=== PATIENT | female | born 1990 | race Caucasian/White ===

== ENCOUNTER 2017-02-28 02:21 | Emergency (ER) | payer OTHER ==
--- NOTE | 2017-02-28 03:25 | PD ---
HPI Chief Complaint contractions Date Seen: Feb 28, 2017 Time Seen: 03:15 Travel History International Travel<30 Days: No Contact w/Intl Traveler<30Days: No Known Affected Area: No History of Present Illness HPI Pt is a 26 y/o G1 with IUP at 40.1 wks who presents for labor check. pt reports feeling contractions since midnight, irregular pattern, 3-15 minutes apart. denies vb, lof. +FM Para: 0 : 1 History Past Medical History Medical History: Denies Significant Hx Past Surgical History Narrative Surgical adenoidectomy disc surgery lower back LEEP Family History Family History: Negative Social History Alcohol Use: No Tobacco Use: No Substance Abuse: No Allergies-Medications (Allergen,Severity, Reaction): Coded Allergies: No Known Allergies (Unverified , 02/28/17) Narrative Medication PNV Review of Systems General / Constitutional: Weight Gain Eyes: No: Diploplia, Blurred Vision, Visual changes, Pain, Photophobia, Other HENT: No: Headaches, Vertigo, Dental Difficulties, Lightheadedness, Other Respiratory: No: Cough, Short of Breath, Wheezing, Other Gastrointestinal: No: Nausea, Vomiting, Diarrhea, Abdominal Pain, Hematemesis, Hematochezia, Constipation, Changes in Bowel Habits, Indigestion, Loss of Appetite, Other Genitourinary: No: Urgency, Frequency, Dysuria, Nocturia, Hematuria, Decreased Urinary Output, Oliguria, Hesitancy, Dribbling, Incontinence, Pelvic Pain, Dyspareunia, Discharge, Menorrhagia, Vaginal Bleeding, Other Musculoskeletal: No: Limited ROM, Weakness, Cramping, Edema, Pain, Other Skin: No Rash, No Itching, No Dryness, No Lumps, No Change in Pigmentation, No Change in Nails, No Alopecia, No Lesions, No Breast Lumps, No Breast Tenderness , No Breast Swelling, No Other Neurologic: No: Weakness, Dizziness, Syncope, Focal Abnormalities, Coordination Problem, Headache, Slurred Speech, Seizures, Other Psychiatric: No: Anxiety, Depression, Suicidal Ideations, Disorder of Thought, Mood Disorder, Substance Abuse, Homicidal Ideation, Other Endocrine: No: Heat Intolerance, Cold Intolerance, Polydipsia, Polyuria, Other Hematologic/Lymphatic: No Easy Bruising, No Lymph Node Enlargement, No Other Physical Exam 118/73, 93, 18, 98.2 Narrative GENERAL: Well-nourished, well-developed patient. SKIN: Warm and dry. HEAD: Normocephalic and atraumatic. EYES: No scleral icterus. No injection or drainage. ENT: No nasal drainage noted. Mucous membranes pink. Airway patent. NECK: Supple, trachea midline. No JVD. CARDIOVASCULAR: Regular rate and rhythm without murmurs, gallops, or rubs. RESPIRATORY: Breath sounds equal bilaterally. No accessory muscle use. . ABDOMEN/GI: Abdomen soft, non-tender, bowel sounds present, no rebound, no guarding Gravid GENITOURINARY: External Genitalia: intact and normal in appearance BUS glands: [wnl] Cervix: - Dilatation: 1 Effacement: thick Station: -3 Presentation: cep Membranes: intact Uterine Contractions: irregular FHT's: Category: 1 Baseline: [130] Reactive: yes Variability: mod Decels: no EXTREMITIES: No cyanosis or edema. BACK: Nontender without obvious deformity. No CVA tenderness. NEUROLOGICAL: Awake and alert. Motor and sensory grossly within normal limits. Five out of 5 muscle strength in all muscle groups. Normal speech. Data Data Vital Signs Reviewed: Yes MDM Medical Record Reviewed: Yes Narrative Course / MDM 26 y/o G1 with IUP at 40.1 wks false labor labor precautions/FKC Diagnosis Diagnosis: Primary Impression: False labor after 37 completed weeks of gestation Additional Impression: 40 weeks gestation of Disposition: 01 DISCHARGE HOME Patient Instructions: Movement (ED), General Instructions, Early Labor Signs (ED) Meli France MD Feb 28, 2017 03:25
[2017-03-01] MEDS ORDERED: PRENTAB85 PO (23:36)
== END 2017-02-28 04:09 | disposition home or self-care (01) ==
LOC: HOBED 02:21
DX: O47.1 False labor at or after 37 completed weeks of gestation (principal); Z3A.40 40 weeks gestation of pregnancy
CPT/HCPCS: 59025

== ENCOUNTER 2017-03-01 22:09 | Inpatient (IN) | payer OTHER ==
[~2017-03-01] VITALS: Ht 160 cm; Wt 84.4 kg
[2017-03-01] MEDS ORDERED: PRENTAB85 PO (23:36)
--- NOTE | 2017-03-01 23:53 | PD ---
HPI Chief Complaint ctx Date Seen: Mar 01, 2017 Time Seen: 23:30 Travel History International Travel<30 Days: No Contact w/Intl Traveler<30Days: No Known Affected Area: No History of Present Illness HPI 26 y/o , IUP at 40.2 records reviewed and PNC complicated by: 1. h/o abnl PAP (ASCUS) with prior h/o abnl PAP treated with LEEP in 2015 2. h/o chlamydia 2010 3. migraine CONRAD 4. Back surgery 2014 The patient presents c/o onset of painful ctx at 4pm. She reports they have increased in intensity and frequency to now under every 5 minutes. There are no aggravating or alleviating factors. There are no attempted treatments. She was seen in the office earlier today and was 1cm dilated. She reports normal and good FM, denies any LOF at this time, denies any VB. She is scheduled for IOL in 2d. Para: 0 : 1 Miscarriage: 0 : 0 History Past Medical History Narrative Medical Migraine CONRAD Obstetric History Obstetric History H/o abnl PAPs with LEEP h/o chlamydia 2010 Past Surgical History Narrative Surgical Back surgery 2014 LEEP Adenoidectomy Family History Narrative Family History HTN Breast CA Social History Alcohol Use: No Tobacco Use: No Substance Abuse: No Allergies-Medications (Allergen,Severity, Reaction): Coded Allergies: No Known Allergies (Unverified , 03/01/17) Home Meds Reported Medications Vit W/ Ferrous Fumara (Pnv Plus Multivi 27-1 mg)1 Tab Tab1 Tab PO DAILY 03/01/17 Review of Systems Gastrointestinal: Abdominal Pain Physical Exam VSS AF, reviewed in EMR Narrative GENERAL: Well-nourished, well-developed patient. SKIN: Warm and dry. HEAD: Normocephalic and atraumatic. EYES: No scleral icterus. No injection or drainage. ENT: No nasal drainage noted. Mucous membranes pink. Airway patent. NECK: Supple, trachea midline. No JVD. CARDIOVASCULAR: Regular rate and rhythm without murmurs, gallops, or rubs. RESPIRATORY: Breath sounds equal bilaterally. No accessory muscle use. BREASTS: Bilateral exam showed no masses , no retractions, no nipple discharge. ABDOMEN/GI: Abdomen soft, non-tender, bowel sounds present, no rebound, no guarding Gravid External Genitalia: intact and normal in appearance BUS glands:nl Cervix: [nl] Dilatation: 1 Effacement:50 Station: -2 Repeat exam in 1h with change to 3cm dilation Presentation: cephalic Membranes: intact, amnisure neg Uterine Contractions: [noted] FHT's: Category: [1] Baseline: [130s] Reactive: [yes] Variability: [moderate with good accels] Decels: [n] EXTREMITIES: No cyanosis or edema. BACK: Nontender without obvious deformity. No CVA tenderness. NEUROLOGICAL: Awake and alert. Motor and sensory grossly within normal limits. Five out of 5 muscle strength in all muscle groups. Normal speech. Skin warm/dry, no rashes noted Data Data Vital Signs Reviewed: Yes [facility] Medical Record Reviewed: Yes Plan A/P: 26y/o 1. IUP at 40.2 2. Early labor at term: cervical change noted over observation period. Discussed labor with patient, will admit to primary Ob. 3. wellbeing: reassuring testing with reactive NST, FHR reassuring and appropriate for gestational henrik. Continue EFM. 4. h/o back surgery 5. h/o abnl PAPs and LEEP: f/u 6. h/o migraine CONRAD Diagnosis Diagnosis: Ruled Out: False labor after 37 completed weeks of gestation Condition: Makayla Cheema MD Mar 01, 2017 23:53 Makayla Willett MD Mar 01, 2017 23:53
--- NOTE | 2017-03-01 23:56 | HHI.PR ---
[facility] [employer] Note Note NST note Indications: IUP at 40.2, abdominal pain, h/o anl PAP, h/o back surgery Baseline 130s GOod accels noted, no decels noted, Reactive Final dx: IUP at 40w, posterm , reassuring testing, false labor F/U as clinically indicated Makayla Willett MD Mar 01, 2017 23:56
[2017-03-02] VITALS (154 sets, daily range): BP systolic 90–146; BP diastolic 40–105; PULSE 47–125; RESP 17–20; TEMP 98.1–98.9; O2SAT 95–100
[2017-03-02] MEDS ORDERED: LACTATED RINGER'S 1000 ML INJ 1,000 ML IV PRN (01:11)
[2017-03-02] MEDS ORDERED: OXYTOCIN 30 UNITS-500ML PREMIX 500 ML IV ONE (01:15)
[2017-03-02] MEDS ORDERED: CITRIC ACID-SODIUM CITRATE LIQ 30 ML UDC PO SCH (01:15)
[2017-03-02] MEDS ORDERED: LIDOCAINE HCL 1% 50 ML VIAL I-DERMAL PRN (01:15)
[2017-03-02] MEDS ORDERED: LIDOCAINE HCL 1% 50 ML VIAL INFIL PRN (01:15)
[2017-03-02] MEDS ORDERED: MINERAL OIL 10 ML VIAL TOPICAL PRN (01:15)
[2017-03-02] MEDS ORDERED: SODIUM CHLORID 0.9% 500 ML INJ 500 ML IV PRN (01:15)
[2017-03-02] MEDS ORDERED: SODIUM CHLOR 0.9% 1000 ML INJ 1,000 ML IV PRN (01:31)
[2017-03-02] MEDS ORDERED: ONDANSETRON HCL 4 MG/2 ML VIAL ONE (01:37)
[2017-03-02] MEDS: LACTATED RINGER'S 1000 ML INJ 1,000 ML IV SCH ×2 (01:40→07:57)
[2017-03-02 01:43] LABS: AUTOMATED NEUTROPHIL # 9.9 TH/MM3 (1.8-7.7); BASOPHIL % 0.3 % (0.0-2.0); EOSINOPHIL # 0.1 TH/MM3 (0-0.4); EOSINOPHIL % 0.4 % (0.0-4.0); HEMATOCRIT 39.9 % (35.0-46.0); HEMO FLAGS DIFF FINAL; LYMPH % 14.3 % (9.0-44.0); LYMPHOCYTE # 1.8 TH/MM3 (1.0-4.8); MEAN CELL VOLUME 88.5 FL (80.0-100.0); MEAN CORPUSCULAR HGB CONC 32.8 % (32.0-36.0); MONO % 7.5 % (0.0-8.0); NEUT % 77.5 % (16.0-70.0); PLATELET COUNT 231 TH/MM3 (150-450); RED BLOOD COUNT 4.51 MIL/MM3 (4.00-5.30); RED CELL DISTRIBUTION WIDTH 14.1 % (11.6-17.2); WHITE BLOOD COUNT 12.8 TH/MM3 (4.0-11.0)
[2017-03-02 01:51] LABS: BACTERIA, URINE OCC /hpf; BLOOD, URINE NEG (NEG); GLUCOSE,URINE NEG (NEG); KETONE, URINE NEG (NEG); MUCUS URINE FEW /lpf (OCC); NITRITE,URINE NEG (NEG); URINE COLOR LIGHT-YELLOW (YELLW/STRAW)
[2017-03-02 01:53] LABS: COMMENT (UR) CULT NOT INDICATED; CULTURE IF INDICATED CULT NOT INDICATED
[2017-03-02] MEDS ORDERED: OXYTOCIN 30 UNITS-500ML PREMIX 500 ML IV SCH (06:00)
[2017-03-02] MEDS ORDERED: fentaNYL 2MCG-BUPIV 0.125% INJ 100 ML ONE (09:28)
[2017-03-02] MEDS ORDERED: ePHEDrine/NS 25 MG/5 ML SYR ONE (09:28)
[2017-03-02] MEDS ORDERED: fentaNYL 2MCG-BUPIV 0.125% 100 ML EPIDURAL SCH (11:30)
[2017-03-02] MEDS ORDERED: ePHEDrine/NS 25 MG/5 ML SYR IV PRN (11:30)
[2017-03-02] MEDS ORDERED: NO SYSTEM NARCOTICS PRN (11:30)
[2017-03-02] MEDS ORDERED: DO NOT ADMINISTER ANTICOAGULANTS PRN (11:30)
[2017-03-02] MEDS ORDERED: MEASLES, MUMPS, RUBELLA VACCINE 0.5 ML VIAL SQ ONE (16:00)
[2017-03-02] MEDS ORDERED: DIPHTH/TETANUS/ACEL PERTUSSIS (BOOSTER) 0.5 ML VIAL/PFS IM ONE (16:00)
[2017-03-02] MEDS ORDERED: METHYLERGONOVINE MALEATE 0.2 MG/ML VIAL ONE (16:50)
--- NOTE | 2017-03-02 16:54 | PD.OB.DELI ---
Anesthesia: Epidural Episiotomy: None Vaginal Delivery: Normal Presentation: Occiput anterior Nuchal Cord: None Delayed cord clamping (45 sec): Yes Shoulder Dystocia: Suprapubic pressure given, Xiang maneuver done : Female One Minute : 8 Five Minute : 8 Weight: 3810 gm Placenta: Spontaneous delivery, Intact, 3 vessel cord Laceration: Vaginal laceration, 2 deg Repair: Vicryl Delano Joshua MD Mar 02, 2017 16:54
[2017-03-02] MEDS ORDERED: ACETAMINOPHEN 325 MG TAB PO PRN (17:00)
[2017-03-02] MEDS ORDERED: DOCUSATE SODIUM 50 MG/SENNA 8.6 MG TAB PO PRN (17:00)
[2017-03-02] MEDS ORDERED: METHYLERGONOVINE MALEATE 0.2 MG/ML VIAL IM ONE (17:00)
[2017-03-02] MEDS ORDERED: OXYTOCIN 10 UNIT/ML AMP XX PRN (17:00)
[2017-03-02] MEDS ORDERED: oxyCODONE/ACETAMINOPHEN 5 MG/325 MG TAB PO PRN (17:00)
[2017-03-02] MEDS ORDERED: SODIUM CHLORIDE 0.9% FLUSH 10 ML FLUSH IV FLUSH PRN (17:00)
[2017-03-02] MEDS ORDERED: ZOLPIDEM TARTRATE 5 MG TAB PO PRN (17:00)
[2017-03-02] MEDS ORDERED: ONDANSETRON ODT 4 MG TAB PO PRN (17:00)
[2017-03-02] MEDS ORDERED: ALUMINUM/MAGNESIUM/SIMETH 30 ML CUP PO PRN (17:00)
[2017-03-02] MEDS ORDERED: SODIUM CHLORIDE 0.9% FLUSH 10 ML FLUSH IV FLUSH SCH (21:00)
[2017-03-03] MEDS: WITCH HAZEL 50%/GLYCERIN 12.5% 40 PAD JAR TOPICAL PRN ×2 (00:20→16:00)
[2017-03-03] MEDS: IBUPROFEN 600 MG TAB PO PRN ×4 (00:20→22:28)
[2017-03-03] MEDS: BENZOCAINE 20% TOPICAL SPRAY 60 ML CAN TOPICAL PRN ×2 (00:20→15:59)
[2017-03-03 07:30] VITALS: BP 107/60; PULSE 88; RESP 20; TEMP 97.6
--- NOTE | 2017-03-03 11:25 | HHI.OB ---
Subjective Post Day: 1 Remarks PPD#1, stable, transitioning well Objective Vitals/I&O Vital Signs Date Time Temp Pulse Resp B/P Pulse Ox O2 Delivery O2 Flow Rate FiO2 03/03/17 07:30 97.6 88 20 107/60 03/02/17 19:15 98.6 03/02/17 19:15 91 18 125/85 03/02/17 18:15 98.3 109 18 90/40 03/02/17 18:00 93 125/74 03/02/17 17:45 18 03/02/17 17:45 89 126/63 03/02/17 17:30 92 115/63 03/02/17 17:28 18 03/02/17 17:15 121 17 95/67 03/02/17 17:00 18 03/02/17 17:00 108 122/62 03/02/17 16:45 98.9 03/02/17 16:45 18 03/02/17 16:35 47 03/02/17 16:31 125 146/63 03/02/17 16:30 111 03/02/17 16:25 105 03/02/17 16:20 108 03/02/17 16:15 106 03/02/17 16:10 106 03/02/17 16:05 111 03/02/17 16:00 102 03/02/17 16:00 113 122/70 03/02/17 15:55 117 03/02/17 15:50 111 03/02/17 15:45 105 03/02/17 15:40 107 03/02/17 15:35 107 03/02/17 15:31 118 115/57 03/02/17 15:30 110 03/02/17 15:25 107 03/02/17 15:20 118 03/02/17 15:15 110 03/02/17 15:10 105 03/02/17 15:05 109 03/02/17 15:00 109 03/02/17 15:00 110 107/53 03/02/17 14:55 108 03/02/17 14:50 104 03/02/17 14:45 98 03/02/17 14:40 96 03/02/17 14:35 108 03/02/17 14:30 117 03/02/17 14:30 117 120/66 7/8/17 14:25 110 8/17 14:20 115 8/17 14:15 113 18 03/02/17 14:10 118 03/02/17 14:05 120 03/02/17 14:05 121 03/02/17 14:00 114 17 14:00 117 03/02/17 14:00 116 126/58 17 13:55 105 03/02/17 13:55 110 03/02/17 13:50 115 17 13:50 113 817 13:45 110 03/02/17 13:45 112 03/02/17 13:40 103 03/02/17 13:40 108 03/02/17 13:35 102 03/02/17 13:35 112 03/02/17 13:30 102 03/02/17 13:30 109 03/02/17 13:30 109 124/71 03/02/17 13:25 104 03/02/17 13:25 108 03/02/17 13:20 97 03/02/17 13:20 90 03/02/17 13:15 98.6 03/02/17 13:15 88 03/02/17 13:15 85 03/02/17 13:15 18 03/02/17 13:10 94 03/02/17 13:10 94 03/02/17 13:05 102 03/02/17 13:05 102 03/02/17 13:00 97 03/02/17 13:00 98 104/61 17 13:00 97 03/02/17 12:55 94 03/02/17 12:55 93 17 12:50 99 03/02/17 12:50 101 03/02/17 12:45 93 17 12:45 91 17 12:25 98 03/02/17 12:25 94 17 12:20 96 17 12:20 95 17 12:15 94 17 12:15 94 03/02/17 12:10 92 17 12:10 95 03/02/17 12:05 97 03/02/17 12:05 95 03/02/17 12:00 93 125/102 03/02/17 12:00 80 03/02/17 12:00 92 03/02/17 11:55 96 03/02/17 11:55 95 03/02/17 11:50 85 03/02/17 11:50 85 03/02/17 11:45 84 03/02/17 11:45 86 03/02/17 11:40 84 03/02/17 11:40 83 03/02/17 11:35 84 03/02/17 11:35 83 03/02/17 11:30 90 03/02/17 11:30 88 123/64 03/02/17 11:30 86 03/02/17 11:25 85 03/02/17 11:25 84 Objective Remarks GENERAL: Well-nourished, well-developed patient. CARDIOVASCULAR: Regular rate and rhythm without murmurs, gallops, or rubs. RESPIRATORY: Breath sounds equal bilaterally. No accessory muscle use. ABDOMEN/GI: Abdomen soft, non-tender. Fundus: Firm, non-tender at umbilicus. GENITOURINARY: Light to moderate bleeding. EXTREMITIES: No cyanosis or edema, non-tender, without signs of DVT. Medications and IVs Current Medications Medications (Trade) Dose Ordered Sig/Reji Route Start Time Stop Time Status Last Admin Lactated Ringer's 1,000 ml @ 125 mls/hr Q8H IV 03/02/17 01:11 03/02/17 07:57 Lactated Ringer's 1,000 ml @ 3,000 mls/hr Q20M PRN IV 03/02/17 01:11 Sodium Chloride 500 ml @ 1,000 mls/hr ONCE PRN IV 03/02/17 01:15 (NS 1000 ml Inj) 1,000 ml @ 100 mls/hr Q10H PRN IV 03/02/17 01:31 (fentaNYL INJ) 50 mcg Q1H PRN IV PUSH 03/02/17 01:15 03/02/17 01:40 (fentaNYL INJ) 100 mcg Q1H PRN IV PUSH 03/02/17 01:15 03/02/17 07:57 Mineral Oil 10 ml 10 ml UNSCH PRN TOPICAL 03/02/17 01:15 (Pitocin 30 Units-NS 500 ml Premix) 500 ml @ 0 mls/hr TITRATE IV 03/02/17 06:00 03/02/17 06:25 Miscellaneous Information No systemic narcotics to be given except... UNSCH PRN .XX 03/02/17 11:30 03/03/17 11:29 Miscellaneous Information DO NOT ADMINISTER ANY ANTICOAGUL... UNSCH PRN .XX 03/02/17 11:30 03/03/17 11:29 (fentaNYL 2MCG-BUPIV 0.125% INJ) 100 ml @ 0 mls/hr TITRATE EPIDURAL 03/02/17 11:30 (ePHEDrine/NS 25 MG/5 ML SYR) 10 mg UNSCH PRN IV 03/02/17 11:30 03/03/17 11:29 (NS Flush) 2 ml BID IV FLUSH 03/02/17 21:00 (NS Flush) 2 ml UNSCH PRN IV FLUSH 03/02/17 17:00 (Tylenol) 650 mg Q4H PRN PO 03/02/17 17:00 (Motrin) 600 mg Q6H PRN PO 03/02/17 17:00 03/03/17 10:03 (Percocet 5-325 Mg) 1 tab Q4H PRN PO 03/02/17 17:00 (Americaine 20% Top Spr) 1 spray Q4H PRN TOPICAL 03/02/17 17:00 03/03/17 00:20 (Tucks Pads) 1 applic QID PRN TOPICAL 03/02/17 17:00 03/03/17 00:20 (Negar-Colace) 2 tab Q12H PRN PO 03/02/17 17:00 (Ambien) 5 mg HS PRN PO 03/02/17 17:00 (Mag-Al Plus Susp Liq) 15 ml Q8H PRN PO 03/02/17 17:00 (Zofran Odt) 4 mg Q6H PRN PO 03/02/17 17:00 Assessment/Plan Assessment and Plan PPD#1, doing well, plan d/c PPD#2 Discharge Planning Routine, day#2 Attending Attestation seen by Delano Saleh MD Mar 03, 2017 11:25
[2017-03-03 15:15] VITALS: BP 101/58; PULSE 96; RESP 16; TEMP 98.2
--- NOTE | 2017-03-03 18:46 | HHI.DCPOC ---
Discharge Care Plan Diagnosis: (1) (spontaneous vaginal delivery) Your Health Problems Are: Vaginal delivery Report Symptoms to Your Doctor -Temperature above 100.5 degrees -Redness, of incision or excessive or foul smelling drainage -Unusual pain or calf pain -Increased vaginal bleeding -Painful or difficulty urinating -Feelings of extreme sadness or anxiety after 2 weeks Goals to Promote Your Health * To prevent worsening of your condition and complications * To maintain your health at the optimal level Directions to Meet Your Goals Take your medications as prescribed Follow your dietary instruction Follow activity as directed Ensure plenty of rest for recovery Drink fluids for hydration Keep your appointments as scheduled Take your immunizations and boosters as scheduled If your symptoms worsen call your PCP, if no PCP go to Urgent Care Center or Emergency Room Smoking is Dangerous to Your Health. Avoid second hand smoke Call the 24-hour crisis hotline for domestic abuse at Carmen Reddy MD Mar 03, 2017 18:46
[2017-03-03 20:45] VITALS: BP 115/69; PULSE 86; RESP 8; TEMP 98.1
[2017-03-04] MEDS: IBUPROFEN 600 MG TAB PO PRN (07:35)
--- NOTE | 2017-03-04 08:03 | HHI.OB ---
Subjective Post Day: 2 Remarks doing well, baby ready for d/c swelling improving Objective Vitals/I&O Vital Signs Date Time Temp Pulse Resp B/P Pulse Ox O2 Delivery O2 Flow Rate FiO2 03/03/17 20:45 86 8 115/69 03/03/17 20:45 98.1 03/03/17 15:15 101/58 03/03/17 15:15 98.2 96 16 Objective Remarks GENERAL: Well-nourished, well-developed patient. CARDIOVASCULAR: Regular rate and rhythm without murmurs, gallops, or rubs. RESPIRATORY: Breath sounds equal bilaterally. No accessory muscle use. ABDOMEN/GI: Abdomen soft, non-tender. Fundus: Firm, non-tender at umbilicus. GENITOURINARY: Light to moderate bleeding. EXTREMITIES: No cyanosis, tr edema, non-tender, without signs of DVT. Medications and IVs Current Medications Medications (Trade) Dose Ordered Sig/Reji Route Start Time Stop Time Status Last Admin Lactated Ringer's 1,000 ml @ 125 mls/hr Q8H IV 03/02/17 01:11 03/02/17 07:57 Lactated Ringer's 1,000 ml @ 3,000 mls/hr Q20M PRN IV 03/02/17 01:11 Sodium Chloride 500 ml @ 1,000 mls/hr ONCE PRN IV 03/02/17 01:15 (NS 1000 ml Inj) 1,000 ml @ 100 mls/hr Q10H PRN IV 03/02/17 01:31 (fentaNYL INJ) 50 mcg Q1H PRN IV PUSH 03/02/17 01:15 03/02/17 01:40 (fentaNYL INJ) 100 mcg Q1H PRN IV PUSH 03/02/17 01:15 03/02/17 07:57 Mineral Oil 10 ml 10 ml UNSCH PRN TOPICAL 03/02/17 01:15 Oxytocin 500 ml @ 0 mls/hr TITRATE IV 03/02/17 06:00 03/02/17 06:25 (fentaNYL 2MCG-BUPIV 0.125% INJ) 100 ml @ 0 mls/hr TITRATE EPIDURAL 03/02/17 11:30 (NS Flush) 2 ml BID IV FLUSH 03/02/17 21:00 (NS Flush) 2 ml UNSCH PRN IV FLUSH 03/02/17 17:00 (Tylenol) 650 mg Q4H PRN PO 03/02/17 17:00 (Motrin) 600 mg Q6H PRN PO 03/02/17 17:00 03/04/17 07:35 (Percocet 5-325 Mg) 1 tab Q4H PRN PO 03/02/17 17:00 (Americaine 20% Top Spr) 1 spray Q4H PRN TOPICAL 03/02/17 17:00 03/03/17 00:20 (Tucks Pads) 1 applic QID PRN TOPICAL 03/02/17 17:00 03/03/17 00:20 (Negar-Colace) 2 tab Q12H PRN PO 03/02/17 17:00 (Ambien) 5 mg HS PRN PO 03/02/17 17:00 (Mag-Al Plus Susp Liq) 15 ml Q8H PRN PO 03/02/17 17:00 (Zofran Odt) 4 mg Q6H PRN PO 03/02/17 17:00 Assessment/Plan Assessment and Plan PPD#2 doing well, plan d/c PPD#2 Discharge Planning Routine, day#2 Gladys Roche MD Mar 04, 2017 08:03
[2017-03-04 08:15] VITALS: BP 119/65; PULSE 82; RESP 18; TEMP 97.6
[2017-03-04] MEDS ORDERED: IBUP-232 PO (11:11)
== END 2017-03-04 12:16 | disposition home or self-care (01) | DRG 775 ==
LOC: HOBED 22:09 → H2EA 03-02 01:11 → H1EA 03-02 19:04
PROVIDERS: ADMIT Obstetrics & Gynecology; ATTEND Obstetrics & Gynecology
PROC: 10E0XZZ Delivery of Products of Conception, External Approach (ICD-10-PCS; principal; 2017-03-02)
PROC: 0KQM0ZZ Repair Perineum Muscle, Open Approach (ICD-10-PCS; 2017-03-02)
DX: O66.0 Obstructed labor due to shoulder dystocia (principal); O71.4 Obstetric high vaginal laceration alone; Z37.0 Single live birth; Z3A.40 40 weeks gestation of pregnancy
CPT/HCPCS: 59025; 81001; 84112; 85025; 86900; 86901; J2210; J2405; J2590; J3010; J7120